=== PATIENT | male | born 1985 | race Two or more races ===

== ENCOUNTER → 2020-06-27 14:31 | Outpatient (BNVA) | payer SELFPAY | PROVIDERS: Visit Provider Surgery | DX: L05.01 Pilonidal cyst with abscess (principal) | CPT/HCPCS: 99202 ==

== ENCOUNTER 2021-07-22 14:59 | Outpatient (REF) | payer OTHER, MEDICAID, SELFPAY ==
--- NOTE | ~2021-07-22 | XR_ITS ---
EXAMINATION: XR CHEST CLINICAL INFORMATION: R05.9 - Cough, unspecified COMPARISON: None TECHNIQUE: 2 views of the chest were obtained. FINDINGS: The lungs are clear. No airspace consolidation or groundglass opacity or effusion. No hyperinflation. Heart size normal. Vascularity normal. Hilar and mediastinal contours and visualized bony structures are unremarkable. XR/XR chest 2V IMPRESSION: Normal study.
== END 2021-07-22 15:00 | disposition home or self-care (01) ==
LOC: HO.XRAY 14:59
PROVIDERS: Visit Provider Internal Medicine
DX: R05.9 Cough, unspecified (principal)
CPT/HCPCS: 71046; 94640

== ENCOUNTER → 2021-08-13 13:20 | Outpatient (BNVA) | payer OTHER, SELFPAY | PROVIDERS: Visit Provider Internal Medicine | DX: Z13.89 Encounter for screening for other disorder (principal) ==

== ENCOUNTER 2022-12-23 14:14 | Outpatient (REF) | payer OTHER, SELFPAY ==
[2022-12-23 16:30] LABS: Prostate Specific Antigen 0.52 ng/mL (<0.05-4.0)
== END 2022-12-23 14:15 | disposition home or self-care (01) ==
LOC: HO.HHCL 14:14
PROVIDERS: Visit Provider Emergency Medicine
DX: N02.9 Recurrent and persistent hematuria with unspecified morphologic changes (principal); R10.12 Left upper quadrant pain; Z12.5 Encounter for screening for malignant neoplasm of prostate
CPT/HCPCS: 36415; 80053; 84153; 85025

== ENCOUNTER 2023-01-29 14:57 | Outpatient (AMB) | payer OTHER, SELFPAY ==
--- OUTSIDE RECORDS SUMMARY | 2023-01-29 14:58 | XMS_ITS | Continuity of Care Document ---
Author Name Unknown Organization [facility] Address [address] [place] [id number]- Care Team Providers Care Nursing Staff Development Coordinator Name Role Phone Vernon MONTAÑO, Daniel Coreas Primary Care Physi cindy [place] [facility] [place]22 [facility] [address] 4th [address] [place] [id number] Allergies, Adverse Reactions, Alerts No Known Medication Allergies Medications ibuprofen 600 mg oral tablet 1 tablet = 600 mg, By Mouth, Every 6 to 8 hours, with food or milk, # 24 tablet, 0 Refills, Maintenance, 11/05/13 17:47:42 Start Date: 11/05/13 Status: Ordered Patient Care team information Care Team Personnel Name: Daniel Junior MD Position: S Outreach Member Role: PCP Address: Address: [address] [place] [phone]- Care Team Related Persons Name: CARYL RICH Address: home [address] [place] [address]
--- OUTSIDE RECORDS SUMMARY | 2023-01-29 14:58 | XMS_ITS | Continuity of Care Document ---
Author Name Unknown Organization [facility] Address [address] [facility] 4[address] [place] [phone]- Care Team Providers Care Radiotelegraph Operator Servicer Name Role Phone Vernon MONTAÑO, Daniel Coreas Primary Care Physi cindy Encounter [facility] [place] Date(s): 03/27/22 - 04/26/22 [facility]ductive [facility] [address] [facility] 4th [address] [place] [id number] Allergies, Adverse Reactions, Alerts No Known Medication Allergies Medications ibuprofen 600 mg oral tablet 1 tablet = 600 mg, By Mouth, Every 6 to 8 hours, with food or milk, # 24 tablet, 0 Refills, Maintenance, 11/05/13 17:47:42 Start Date: 11/05/13 Status: Ordered Patient Care team information Care Team Personnel Name: Daniel Junior MD Position: S Outreach Member Role: PCP Address: Address: [address] [place] [phone]- Care Team Related Persons Name: CARYL RICH Address: home [address] [place] [address]
--- NOTE | 2023-01-29 15:00 | A.OFFVIS_ITS ---
Intake Intake Visit Reasons: recurrent hematuria Intake Note: NEW Patient presents today to established treatment for Recurrent Hematuria: Meds- None Allergies to Antibiotic- No Known Allergies Blood Thinner- None Weld Technician Required: No Accompanied by: Self / Same As Patient Allergies No Known Allergies Allergy (Verified 01/29/23 15:01) HPI HPI Comments History of Present Illness Details Codey is a 37-year-old male who presents today to the office to establish as a new patient for an evaluation of recurrent hematuria. 01/29/2023? He presents today for an evaluation of recurrent microscopic hematuria. Patient states that for about a year he had noticed some changes in urination including some urgency and bladder pressure when he is not able to get to the bathroom in time. He states that he went to Urgent Care where he was told that there is a small amount of blood in the urine. He did not receive any antibiotics at that time. He followed up with his provider was referred to the urology office by his PCP. Patient also states that he is concerned about his testosterone levels, states that he ejaculates to early during the sexual activity. Findings of the CAT scan were not available to review at this time Examination: Prostate is tender to palpation; genitalia and testicles are normal and non tender. Evaluation today?UA? leukocytes: negative; blood: negative. Plan: Alfuzosin 10 mg was ordered. Will check a free and total testosterone level, and will request the CAT scan reports and will discuss on follow-up. I discussed with the patient about avoiding dietary bladder irritants, and cutting back on caffeine and spicy foods. [facility] Medical History Cough in adult patient Pilonidal abscess of cleft Surgical History History of ankle surgery Social History Alcohol intake: never Patient Tobacco Use Status: Never used Tobacco Review of Systems Const All systems reviewed & are unremarkable except as noted in HPI and below Reports no additional complaints Eyes Reports no additional complaints ENT Reports no additional complaints Card Denies dyspnea Resp Denies cough and Denies dyspnea GI Reports no additional complaints Musc Reports no additional complaints Skin/Breast Denies rash and Denies unusual bruising Neuro Reports no additional complaints Psych Reports no additional complaints Endo Reports no additional complaints Mau/Lymph Reports no additional complaints Aller/Immun Reports no additional complaints Physical Exam Const General: healthy appearing, no acute distress and well developed Orientation/consciousness: patient oriented x3 HEENT Head: Yes normocephalic and Yes atraumatic Eyes Conjunctivae: conjunctivae normal Neck Neck: Yes normal visual inspection Chest Chest palpation & inspection: normal inspection of the chest Resp Effort & Inspection: normal respiratory effort Cardio Rate: regular rate GI Inspection: Yes normal to inspection Palpation (GI): Soft to palpation Other: Prostate Exam: tender to palpation Penis: normal penis Scrotum: scrotum normal Skin General skin exam: no rashes or lesions noted Neuro General: patient oriented x3 Extrem General: No pedal edema Psych Appearance: grossly normal Affect: normal affect Assessment & Plan Assessment & Plan (1) Prostatitis: Code(s): N41.9 - Inflammatory disease of prostate, unspecified (2) Urgency of micturition: Code(s): R39.15 - Urgency of urination (3) Pelvic pain in male: Code(s): R10.2 - Pelvic and perineal pain Plan Alfuzosin 10 mg was ordered. Will check a free and total testosterone level, and will request the CAT scan reports and will discuss on follow-up. I discussed with the patient about avoiding dietarry bladder irritants, and cutting back on caffeine and spicy foods. Orders: Orders AMB Urinalysis Automated 01/29/23 Z13.9 - Encounter for screening, unspecified Medications: New alfuzosin ER administer after the same meal each day 10 mg PO DAILY 30 tabs 2RF Patient Instructions: The patient had an opportunity to ask questions regarding treatment plan. All questions were answered. Imaging, Laboratory studies and physical exam results were discussed and reviewed in detail. No major barriers to understanding were identified. The patient expressed understanding and agreement with the above treatment plan. The patient is aware they should contact our office by phone for worsening of their current condition or the appearance of new symptoms. Compliance is encouraged with any medications and followup testing that is ordered. It is a privilege to be allowed the opportunity to participate in the urologic care of your patient. If you have any questions or concerns regarding treatment for the above conditions please do not hesitate to contact me. The office telephone contact is [phone]. This note is constructed in part using voice recognition software. While every effort has been made to ensure accuracy cryptologic support specialist errors may have been included. Yours sincerely, Ahmet Weldon MD Coding Level of Care Code New Pt Level 4 (15957) Diagnoses Prostatitis N41.9 Urgency of micturition R39.15 Pelvic pain in male R10.2
== END 2023-01-29 15:56 | disposition home or self-care (01) ==
LOC: HO.HUSH 14:57
PROVIDERS: PCP Emergency Medicine; Visit Provider Urology
DX: N41.9 Inflammatory disease of prostate, unspecified (principal); R39.15 Urgency of urination; R10.2 Pelvic and perineal pain
CPT/HCPCS: 99204

== ENCOUNTER → 2023-01-29 14:57 | Outpatient (BNVA) | payer OTHER, SELFPAY | PROVIDERS: PCP Emergency Medicine; Visit Provider Urology ==

== ENCOUNTER 2023-02-16 13:32 | Outpatient (REF) | payer OTHER, SELFPAY ==
[2023-02-16 16:50] LABS: PSA,Total (Free>4and<10) 0.52 ng/mL (0.00-4.00)
== END 2023-02-16 13:33 | disposition home or self-care (01) ==
LOC: HO.HMGCLDS 13:32
PROVIDERS: PCP Emergency Medicine; Visit Provider Urology
DX: Z12.5 Encounter for screening for malignant neoplasm of prostate (principal); N41.9 Inflammatory disease of prostate, unspecified
CPT/HCPCS: 36415; 84153

== ENCOUNTER 2023-03-25 15:26 | Outpatient (AMB) | payer OTHER, SELFPAY ==
--- NOTE | 2023-03-25 20:01 | MHC.OFFVIS ---
Intake Intake Visit Reasons: 8w/labs Intake Note: Here for follow up Allergies No Known Allergies Allergy (Verified 01/29/23 15:01) HPI HPI Comments History of Present Illness Details Codey is a 37-year-old male who presents today to the office as a follow up. 03/25/2023- He was seen last on 01/29/23 with complaints of urgency and bladder pressure. Exam was concerning for prostatitis/prostadynia and he was started on alfuzosin. At that time he complained of concerns regarding ejaculation and wanted a testosterone level checked. Today he states his is voiding better and having normal erections, he had a PSA done which was normal. A testosterone level was not done. Discussed results: 02/16/23-- PSA --0.52 Plan: Cont Alfuzosin 10 mg FU in 6 months Avoid dietary bladder irritants, such as cutting back on caffeine and spicy foods. [facility] Medical History Cough in adult patient Pilonidal abscess of yaa cleft Surgical History History of ankle surgery Social History Alcohol intake: never Patient Tobacco Use Status: Never used Tobacco Review of Systems Const All systems reviewed & are unremarkable except as noted in HPI and below Reports no additional complaints Eyes Reports no additional complaints ENT Reports no additional complaints Card Denies dyspnea Resp Denies cough and Denies dyspnea GI Reports no additional complaints Musc Reports no additional complaints Skin/Breast Denies rash and Denies unusual bruising Neuro Reports no additional complaints Psych Reports no additional complaints Endo Reports no additional complaints Mau/Lymph Reports no additional complaints Aller/Immun Reports no additional complaints Assessment & Plan Assessment & Plan (1) Prostatitis: Code(s): N41.9 - Inflammatory disease of prostate, unspecified (2) Urgency of micturition: Code(s): R39.15 - Urgency of urination (3) Pelvic pain in male: Code(s): R10.2 - Pelvic and perineal pain Plan Cont Alfuzosin 10 mg FU in 6 months Avoid dietary bladder irritants, such as cutting back on caffeine and spicy foods. Medications: Refilled alfuzosin ER administer after the same meal each day 10 mg PO DAILY 90 tabs 1RF Coding Level of Care Code Est Pt Level 3 (78857) Diagnoses Prostatitis N41.9 Urgency of micturition R39.15 Pelvic pain in male R10.2
== END 2023-03-25 15:55 | disposition home or self-care (01) ==
PROVIDERS: PCP Emergency Medicine; Visit Provider Urology
DX: N41.9 Inflammatory disease of prostate, unspecified (principal); R39.15 Urgency of urination; R10.2 Pelvic and perineal pain
CPT/HCPCS: 99213

== ENCOUNTER → 2023-03-25 15:26 | Outpatient (BNVA) | payer OTHER, SELFPAY | PROVIDERS: PCP Emergency Medicine; Visit Provider Urology ==

== ENCOUNTER 2023-09-23 15:25 | Outpatient (REF) | payer OTHER, SELFPAY ==
[2023-09-23 16:48] LABS: Urine Cytology See Pathology rpt
== END 2023-09-23 15:26 | disposition home or self-care (01) ==
LOC: HO.LAB 15:25
PROVIDERS: PCP Emergency Medicine; Visit Provider Urology
DX: R31.29 Other microscopic hematuria (principal); N41.9 Inflammatory disease of prostate, unspecified; R10.2 Pelvic and perineal pain; R39.15 Urgency of urination
CPT/HCPCS: 81003; 88112

== ENCOUNTER 2023-09-23 15:25 | Outpatient (AMB) | payer OTHER, SELFPAY ==
--- NOTE | 2023-09-23 15:40 | A.OFFVIS_ITS ---
Intake Visit Reasons: 6m follow up Intake Note: Patient is Present for Follow Up Urology Medication: Alfuzosin Antibiotic Allergies:None Blood Thinners:None Diabetic:No No diabetic medications Patient states he does not take Alfuzosin daily he takes it sometimes denies any urinary issues at this time Allergies No Known Allergies Allergy (Verified 09/23/23 15:53) HPI Comments Details: 09/23/23--Codey is a 38-year-old male who presents today to the office as a follow up. History of chronic prostatitis. Treated with alfuzosin than behavioral modification. He states that he is not needing the alfuzosin on a daily basis. Avoid dietary bladder irritants, such as cutting back on caffeine and spicy foods. Review of chart: 03/25/2023- He was seen last on 01/29/23 with complaints of urgency and bladder pressure. Exam was concerning for prostatitis/prostadynia and he was started on alfuzosin. At that time he complained of concerns regarding ejaculation and wanted a testosterone level checked. Today he states his is voiding better and having normal erections, he had a PSA done which was normal. A testosterone level was not done. Discussed results: 02/16/23-- PSA --0.52 [facility] Medical History Cough in adult patient Pilonidal abscess of yaa cleft Surgical History History of ankle surgery Social History Alcohol intake: never Patient Tobacco Use Status: Never used Tobacco Review of Systems Const All systems reviewed & are unremarkable except as noted in HPI and below Reports no additional complaints Eyes Reports no additional complaints ENT Reports no additional complaints Card Reports no additional complaints Resp Reports no additional complaints GI Reports no additional complaints Reports as per HPI Musc Reports no additional complaints Skin/Breast Reports system reviewed and no additional complaints, except as documented Neuro Reports no additional complaints Psych Reports no additional complaints Endo Reports no additional complaints Mau/Lymph Reports no additional complaints Aller/Immun Reports no additional complaints Results AMB Urinalysis, Automated UA Leukoctes 0 Edda/uL Last Edit by GRIS Alicea on 09/23/23 15:57 UA Nitrite Negative Last Edit by Elvira Neal, RMA on 09/23/23 15:57 UA Urobilinogen 0.2 mg/dL Last Edit by Elvira Neal, RMA on 09/23/23 15:5 7 UA Protein 15 mg/dL Last Edit by Elvira Neal, RMA on 09/23/23 15:57 UA pH 5.0 Last Edit by Elvira Neal, RMA on 09/23/23 15:57 UA Blood 25 Skinny/uL Last Edit by Elvira Neal, RMA on 09/23/23 15:57 UA Specific [place] 1.030 Last Edit by Elvira Neal, RMA on 09/23/23 15: 57 UA Ketone Negative Last Edit by Elvira Neal, RMA on 09/23/23 15:57 UA Bilirubin 0 mg/dL Last Edit by Elvira Neal, RMA on 09/23/23 15:57 UA Glucose 0 mg/dL Last Edit by Elvira Neal, RMA on 09/23/23 15:57 Results Reviewed Results Reviewed: Laboratory Last Values Urine pH (Auto) 5.0 09/23/23 15:54 Specific [place] (Auto) 1.030 09/23/23 15:54 Urine Protein (Auto) 15 mg/dL 09/23/23 15:54 Glucose (UA)(Auto) 0 mg/dL 09/23/23 15:54 Urine Ketones (Auto) Negative 09/23/23 15:54 Urine Blood (Auto) 25 Skinny/uL 09/23/23 15:54 Urine Nitrite (Auto) Negative 09/23/23 15:54 Urine Bilirubin (Auto) 0 mg/dL 09/23/23 15:54 Urine Urobilinogen (Auto) 0.2 mg/dL 09/23/23 15:54 Leukocyte Esterase (Auto) 0 Edda/uL 09/23/23 15:54 Assessment & Plan Assessment & Plan (1) Prostatitis: Code(s): N41.9 - Inflammatory disease of prostate, unspecified Category: Medical (2) Urgency of micturition: Code(s): R39.15 - Urgency of urination Category: Medical (3) Pelvic pain in male: Code(s): R10.2 - Pelvic and perineal pain Category: Medical Plan Cont Alfuzosin 10 mg FU in 6 months Avoid dietary bladder irritants, such as cutting back on caffeine and spicy foods. Orders: Orders AMB Urinalysis Automated 09/23/23 Z13.9 - Encounter for screening, unspecified Urine Cytology 09/23/23 R31.29 - Other microscopic hematuria Coding Level of Care Code Est Pt Level 3 (23808) Diagnoses Prostatitis N41.9 Urgency of micturition R39.15 Pelvic pain in male R10.2
== END 2023-09-23 16:26 | disposition home or self-care (01) ==
PROVIDERS: PCP Emergency Medicine; Visit Provider Urology
DX: N41.9 Inflammatory disease of prostate, unspecified (principal); R39.15 Urgency of urination; R10.2 Pelvic and perineal pain
CPT/HCPCS: 99213

== ENCOUNTER 2024-06-22 15:41 | Outpatient (AMB) | payer OTHER, SELFPAY ==
--- NOTE | 2024-06-22 15:45 | MHC.OFFVIS ---
Intake Visit Reasons: 9m follow up Intake Note: Patient is Present for a 9 month follow Up Urology Medication:Alfuzosin (not taking) Antibiotic Allergies:None Blood Thinners:None PVR:25ml Allergies No Known Allergies Allergy (Verified 06/22/24 15:46) Medication List - Last Reconciled 06/22/24 by Ahmet Weldon MD alfuzosin ER 10 mg PO DAILY HPI Comments Details: 06/22/24--Codey is a 38-year-old male who presents today to the office as a follow up. History of chronic prostatitis. Treated with alfuzosin than behavioral modification. He states that he is not needing the alfuzosin on a daily basis. FU one year 09/23/23--Codey is a 38-year-old male who presents today to the office as a follow up. History of chronic prostatitis. Treated with alfuzosin than behavioral modification. He states that he is not needing the alfuzosin on a daily basis. Avoid dietary bladder irritants, such as cutting back on caffeine and spicy foods. 03/25/2023- He was seen last on 01/29/23 with complaints of urgency and bladder pressure. Exam was concerning for prostatitis/prostadynia and he was started on alfuzosin. At that time he complained of concerns regarding ejaculation and wanted a testosterone level checked. Today he states his is voiding better and having normal erections, he had a PSA done which was normal. A testosterone level was not done. Discussed results: 02/16/23-- PSA --0.52 [facility] Medical History Cough in adult patient Pilonidal abscess of yaa cleft Surgical History History of ankle surgery Social History Alcohol intake: never Patient Tobacco Use Status: Never used Tobacco Results AMB Urinalysis, Automated UA Leukoctes 0 Edda/uL Last Edit by Stephanie Hinojosa on 06/22/24 16:27 UA Nitrite Negative Last Edit by Stephanie Hinojosa on 06/22/24 16:27 UA Urobilinogen 0.2 mg/dL Last Edit by Stephanie Hinojosa on 06/22/24 16:27 UA Protein 15 mg/dL Last Edit by Stephanie Hinojosa on 06/22/24 16:27 UA pH 6.0 Last Edit by Stephanie Hinojosa on 06/22/24 16:27 UA Blood 0 Skinny/uL Last Edit by Stephanie Hinojosa on 06/22/24 16:27 UA Specific [place] 1.025 Last Edit by Stephanie Hinojosa on 06/22/24 16:27 UA Ketone Negative Last Edit by Stephanie Hinojosa on 06/22/24 16:27 UA Bilirubin 0 mg/dL Last Edit by Stephanie Hinojosa on 06/22/24 16:27 UA Glucose 0 mg/dL Last Edit by Stephanie Hinojosa on 06/22/24 16:27 Assessment & Plan Assessment & Plan Orders: Orders AMB Urinalysis Automated Today Z13.9 - Encounter for screening, unspecified Medications: New alfuzosin ER administer after the same meal each day 10 mg PO DAILY 30 tabs 1RF Coding
--- OUTSIDE RECORDS SUMMARY | 2024-06-22 17:50 | XMS_ITS | Data Portability ---
Author Organization [facility], [address] Address [address] [place] [address] Care Team Providers Care Hard Tile Setter Apprentice Name Role Phone [facility] Primary Care Provider Assessment No assessment recorded. Plan of Treatment Reminders Order Date Submit Date Provider Last Modified By Organization Details Last Modified Time Details Appointments None recorded. Lab urinalysis , dipstick 2022 023 [place] [address] _[facility], [address] [place] [address], [phone], 15:13:51 culture, urine 2022 023 [place] [facility], [address] [place] [address], [id number], 06:08:42 Referral None recorded. Procedures None recorded. Surgeries None recorded. Imaging None recorded. Medication Orders None recorded. Patient TargetsNo targets recorded. Patient InstructionsNo instructions recorded. Reason for Referral None Reported. Results Created Date Observation Date Name Description Value Unit Range Abnormal Flag Note LastModifiedBy Organization Detail LastModifiedTime 12/16/1912/16/2022 URINE CULTU KENNETH CARDENAS urine culture, routine FINAL REPORT Not Available [facility] ([facility]) [address] [place], [address], 12/17/2022 06:08:42 12/16/1912/16/2022 URINE CULTU REKENNETH result 1 NO GROWTH Not Available [facility] ([facility]) [address] [facility], [place], [address], 12/17/2022 06:08:42 12/16/1912/15/2022 urina lysis , dipst ick Unknown Analyte Yellow Not Available _ pily [address] [place], [address], 12/15/2022 14:07:18 12/16/1912/15/2022 urina lysis , dipst ick Unknown Analyte Clear Not Available _ [place] [address] [place], [address], 12/15/2022 14:07:18 12/16/1912/15/2022 urina lysis , dipst ick Unknown Analyte Negati ve Not Available sophie w[place] [address] [place], [address], 12/15/2022 14:07:18 12/16/1912/15/2022 urina lysis , dipst ick Unknown Analyte Negati ve Not Available sophie [place] [address] [place], [address], 12/15/2022 14:07:18 12/16/1912/15/2022 urina lysis , dipst ick Unknown Analyte Negati ve Not Available sophie [address] [place], [address], 12/15/2022 14:07:18 12/16/1912/15/2022 urina lysis , dipst ick Unknown Analyte 1.030 Not Available [address] [place], [address], 12/15/2022 14:07:18 12/16/1912/15/2022 urina lysis , dipst ick Unknown Analyte Trace- intact Not Available sophie [address] [place], [address], 12/15/2022 14:07:18 12/16/1912/15/2022 urina lysis , dipst ick Unknown Analyte 6.0 Not Available [address] [address] [place], [address], 12/15/2022 14:07:18 12/16/1912/15/2022 urina lysis , dipst ick Unknown Analyte Negati ve Not Available sophie wolff [address] [place], [address], 12/15/2022 14:07:18 12/16/1912/15/2022 urina lysis , dipst ick Unknown Analyte 0.2 E.U./d L Not Available sophie wolff [address] [place], [address], 12/15/2022 14:07:18 12/16/1912/15/2022 urina lysis , dipst ick Unknown Analyte Negati ve Not Available sophie wolff [address] [place], [address], 12/15/2022 14:07:18 12/16/1912/15/2022 urina lysis , dipst ick Unknown Analyte Negati ve Not Available sophie [address]olff [address] [place], [address], 12/15/2022 14:07:18 Result Notes None recorded. Problems No Known Problems Procedures Surgical History Date Name Laterality Status Provider Name and Address Organization Details Recorded Time procedure on ankle completed MELODY HERMOSILLO PA - [facility] 12/15/2022 14:07:10 Imaging Results None recorded. Procedure Notes None recorded. Medical Equipment None Reported. Allergies No known drug allergies Medications Not known to be on any medication Vitals Date Recorded Body height Body mass index (BMI) Body weight Respiratory rate Body temperature Oxygen saturation Oxygen saturation in Arterial blood by Pulse oximetry Heart rate Systolic blood pressure Diastolic blood pressure Provider Name and Address Organization Details Last Updated DateTime 180.34 cm 34.2 kg/m2 650920. 13 g 18 /min 97.5 [degF] 97 % 97 % 77 /min 137 mm[Hg] 86 mm[Hg] MELODY HERMOSILLO PA - [facility] 14:09:02 Social History Question Answer Notes LastModified by Organizat ion Details LastModified Time Tobacco Smoking Status Never Smoker MELODY HERMOSILLO thu PA - [facility] 12/15/2022 14:06:53 What Is Your Level Of Alcohol Consumption? None [email or web address] Information not available 12/15/2022 Do You Use Any Illicit Or Recreational Drugs? No [email or web address] Information not available 12/15/2022 Have You Recently Traveled Abroad? No Information not available 12/15/2022 Do You Or Have You Ever Used Any Other Forms Of Tobacco Or Nicotine? No Information not available 12/15/2022 Sex: Unknown Functional Status None recorded. Mental Status None recorded. Family History Relationship Description Onset Age of this Age Resolved Age Notes LastModified by Organization Details LastModified Time Father No current problems or disability [email or web address] Not available 12/15 14:06:37 Mother No current problems or disability Not available 12/15 14:06:37 Medical History No medical history recorded. Past Encounters Encounter ID Performer Location Encounter Start Date Encounter Closed Date Diagnosis/Indication Diagnosis SNOMED-CT Code Diagnosis ICD10 Code Diagnosis Note [id number] [facility] [address] [place] [address] 04/26/2018 09:46:09 04/26/2018 10:17:18 [id number] [place] [address] [place] [address] 12/15/2022 13:48:14 12/15/2022 15:21:27 Increased frequency of urination 491051289 R35.0 Urine has trace intact blood. No indication s otherwise of infection. Symptoms (difficult y starting urination and frequency) consistent with possible prostate issues possibly causing some obstructiv e symptomsur inary symptoms x 2-3 months.Dis cussed the possibilit y of kidney stone s also as a cause for blood in urineSugge st increasing fluids and if pain increases will need to go to ER Low back pain 245320928 M54.50 Low back pain x 2 days which is reproducib le is possibly musculoske letal. No red flags. Suggest Ibuprofen and rest Health Concerns Section Related Observation LastModified by Organization Detai ls LastModified Time None Recorded Concern Status LastModified by Organization Details LastModified Time None Recorded Advance Directives Directive None Recorded Payers Encounter Date Sequence Insurance Name Policy Number Policy Red Covered Member ID Red Member ID Guarantor Name 12/15/2022 1 [facility] [id number] Codey Hassan [id number] Codey donaldson Notes Date Note Type Note Provider Name and Address Organization Details Recorded Time 3 text/html Urinary Problems-MaleReported bypatient.source of patient informationInformation obtained from patient; Patient arrived at Urgent Care ambulatory Severity:no pain Modifying Factors:nothing gives relief Associated Symptoms:no penile lesions/sores; no penile discharge; no flank pain; no blood in the urine; no change in urine appearance; no pain during urination; no fever/chills; no fatigue; no myalgiaNotes:For about 2-3 months felt that he feels the need to urinate frequently but when he does he has a difficult time going. There is no dysuria, no blood in urine. NO history kidney stones.The back pain started 2 days ago and is located lower midline of bacdk. No injury. Flash Monsalve MD [address] [place], [address], [place] - [facility] 12/15/2022 16:42:46
--- OUTSIDE RECORDS SUMMARY | 2024-06-22 17:50 | XMS_ITS | Clinical Summary ---
Author Organization [employer] Address [address] [facility] [address] [place] [address] Care Team Providers Care Workers' Compensation Magistrate Name Role Phone Marii Reagan REFINERY TECHNICIAN Primary Care Provider Allergies No known active allergies Medications simethicone (Mylicon) 125 MG chewable tabletIndicatio ns:Flatulence 03/27/2022 Activ e Diclofenac Sodium (Voltaren) 1 % gelIndications: Costochondritis Apply thin layer by topical route 3-4 times daily as needed for MSK pain 50 g 2 01/13/2023 Active Active Problems Problem Noted Date Diagnosed Date Other microscopic hematuria 01/24/2023 Assessment & Plan (01/24/2023 12:07 PM EST): See R39.9 Lower urinary tract symptoms 03/27/2022 Overview (01/24/2023): ?? Initial eval 12/15/22 at [facility] [place] ?? UA positive hematuria and trace protein. Negative leuks & nitrites ?? CT scan abd/pelvis [place] [facility] [place] work: CBC, CMP, PSA WNL Dec 2022 o Referred to [facility] - Dr. Avitia Assessment & Plan (01/24/2023 12:12 PM EST): No acute worsening of symptoms Checked POC A1c w/ hx of polyuria. A1c WNL ED/urgent care precautions reviewed Follow up with imaging and specialist Immunizations Name Administration Dates Next Due Influenza injectable quadriv alent preservative free 03/21/2021 Moderna Covid-19 Vaccine 12+ 03/21/2021,08/16/19 21,04/04/2020 Tdap 07/07/2016 Social History Tobacco Use Types Packs/Day Years Used Date Smoking Tobacco: Never Smokeless Tobacco: Never Tobacco Cessation:Counseling Given: Not Answered Sex and Gender Information Value Date Recorded Sex Assigned at Male 01/12/2022 10:16 AM EDT Legal Sex Male 10:16 AM EDT Gender Identity Male 01/12/2022 10:16 AM EDT Sexual Orientation Straight 01/12/2022 10 :16 AM EDT Last Filed Vital Signs Vital Sign Reading Time Taken Comments Blood Pressure 138/88 01/13/2023 10:11 AM EDT Pulse 78 01/13/2023 10:11 AM EDT Temperature 36.4 ??C (97.6 ??F) 01/13/2023 10:11 AM E DT Respiratory Rate 20 01/13/2023 10:11 AM EDT Oxygen Saturation 98% 01/13/2023 10:11 AM EDT Inhaled Oxygen Concentration - - Weight 114 kg (251 lb) 01/13/2023 10:11 AM EDT Height 180.3 cm (5' 11 ) 01/13/2023 10:11 AM EDT Body Mass Index 35.01 01/13/2023 10:11 AM EDT Plan of Treatment Health Maintenance Due Date Last Done Comments Depression Screening 1985 HIV Screening 1985 SDOH Screening 1985 Alcohol/Substance Use Screening 1997 Family Planning (PISQ) 2000 Hepatitis C Screening 07/02/2003 Hepatitis B Vaccines (1 of 3 - 19+ 3-dose series) 2004 Dental Oral Exam 04/08/2014 10/05/2013, 06/19/2011 Dental Prophylaxis 04/09/2014 10/06/2013 Dental X-Ray: Bitewings 10/06/2014 10/05/2013 Dental X-Ray: Full Mouth 10/06/2016 10/05/2013 Tobacco Screening 01/14/2024 01/13/2023 Lipid Panel 11/26/2025 11/26/2020 DTaP/Tdap/Td Vaccines (2 - Td or Tdap) 07/07/2026 07/07/2016 Zoster Vaccines (1 of 2) 07/02/2035 RSV Patients and Patients Aged 60 years or older (1 - 1-dose 75+ series) 2060 COVID-19 Vaccine Completed 12/23/2023, 09/2021, 08/15/2020, Additional history exists Influenza Vaccine Completed 12/23/2023, 03/21/2021 HIB Vaccines Aged Out No longer eligi ble based on patient's age to complete this topic HPV Vaccines Aged Out No longer eligi ble based on patient's age to complete this topic Hepatitis A Vaccines Aged Out No long er eligible based on patient's age to complete this topic IPV Vaccines Aged Out No longer eligi ble based on patient's age to complete this topic Meningococcal Vaccine Aged Out No lynne albino eligible based on patient's age to complete this topic Pneumococcal Vaccine: Pediatrics (0 to 5 Years) and At-Risk Patients (6 to 49) Years) Aged Out No longer eligible based on patient's age to complete this topic RSV under 20 months Aged Out No longe r eligible based on patient's age to complete this topic Rotavirus Vaccines Aged Out No longer eligible based on patient's age to complete this topic Procedures Procedure Name Priority Date/Time Associated Diagnosis Comments LIPID PANEL, STANDARD Routine 11/26/2020 8:25 AM EDT PROPHYLAXIS - ADULT Routine 10/06/2013 1 2:00 AM EDT INTRAORAL - COMPLETE SERIES OF RADIOGRAPHIC IMAGES Routine 10/05/2013 12:00 AM EDT PERIODIC ORAL EVALUATION - ESTABLISHED PATIENT Routine 10/05/2013 12:00 AM EDT from Last 3 Months or Most Recently Relevant to Health Maintenance Results * (ABNORMAL) LIPID PANEL, STANDARD (11/26/2020 8:25 AM EDT) Chol/HDLC Ratio 6.4(H) <5.0 (calc) [facility] Cholesterol, Total 191 <200 mg/dL [facility] HDL Cholesterol 30(L) > OR = 40 mg/dL [facility] LDL Cholesterol 129(H) mg/dL (calc) [facility] Comment: Reference range: <100 ?? Desirable range <100 mg/dL for primary prevention; ?? <70 mg/dL for patients with CHD or diabetic patients ?? with > or = 2 CHD risk factors. ?? LDL-C is now calculated using the Anand-Estrada ?? calculation, which is a validated novel method providing ?? better accuracy than the Friedewald equation in the ?? estimation of LDL-C. ?? Anand SS et al. BER[place]. 2013;310(19): 9013-0444 ?? (http://education.PostPath/faq/MZP519) Non-HDL Cholesterol 161(H) <130 mg/dL (calc) [facility] Comment: For patients with diabetes plus 1 major ASCVD risk ?? factor, treating to a non-HDL-C goal of <100 mg/dL ?? (LDL-C of <70 mg/dL) is considered a therapeutic ?? option. Triglycerides 182(H) <150 mg/dL [facility] 11/26/2020 8:25 AM EDT us Luz Rodrigez MD LAB BLOOD ORDERABLES Fin al Result [facility] [address] from Last 3 Months or Most Recently Relevant to Health Maintenance Insurance [facility] [place] [id number] Care Teams Workers' Compensation Magistrate Relationship Specialty Start Date End Date Marii Reagan FNP [address] [place] [id number] PCP - General Family Medicine 11/10/21
== END 2024-06-22 16:24 | disposition home or self-care (01) ==
LOC: HO.HUSH 15:42
PROVIDERS: PCP Emergency Medicine; Visit Provider Urology
DX: Z13.9 Encounter for screening, unspecified (principal)

== ENCOUNTER → 2024-06-22 15:41 | Outpatient (BNVA) | payer OTHER, SELFPAY | PROVIDERS: PCP Emergency Medicine; Visit Provider Urology | DX: N41.9 Inflammatory disease of prostate, unspecified (principal); R39.15 Urgency of urination; R10.2 Pelvic and perineal pain | CPT/HCPCS: 81003 ==